=== PATIENT | male | born 1960 | race American Indian/Alaskan Native ===

== ENCOUNTER 2018-03-24 07:22 | Emergency (ER) | payer MEDICARE ==
[2018-03-24 07:22] VITALS: BMI 29.2
[2018-03-24 07:36] VITALS: TEMP 97
[2018-03-24] MEDS ORDERED: Albuterol-Ipratrop 3 mg / 0.5 (3 ml) UD ONE ×3 (07:38→09:38)
[2018-03-24] MEDS ORDERED: Albuterol-Ipratrop 3 mg / 0.5 (3 ml) UD INH STA ×3 (07:42→09:10)
--- NOTE | 2018-03-24 08:20 | ED PDOC ---
HPI: SOB/CHF/COPD Time Seen by Provider: 03/24/18 07:38 Chief Complaint (Nursing): Shortness Of Breath Chief Complaint (Provider): Shortness Of Breath History Per: Patient History/Exam Limitations: no limitations Onset/Duration Of Symptoms: Days (1x) Current Symptoms Are (Timing): Still Present Additional Complaint(s): 57 year old male with a history of asthma, worse with seasonal allergies, presents to the ED with shortness of breath since yesterday. Patient reports he used his inhaler at home with no improvement. He denies chest pain, cough, fever or any other medical complaints. PMD: none provided. Past Medical History Vital Signs: Last Vital Signs Temp 97.0 F L 03/24/18 07:34 Pulse 99 H 03/24/18 07:34 Resp 22 03/24/18 07:59 BP 144/102 H 03/24/18 07:34 Pulse Ox 96 03/24/18 09:56 - Medical History PMH: Arthritis, Asthma, HIV, HTN, Hypercholesterolemia Denies: Chronic Kidney Disease, TIA - Surgical History Surgical History: No Surg Hx - Family History Family History: States: Unknown Family Hx, Hypertension - Immunization History Hx Tetanus Toxoid Vaccination: No Hx Influenza Vaccination: Yes Hx Pneumococcal Vaccination: Yes - Home Medications Home Medications: Ambulatory Orders Medication Instructions Recorded Albuterol HFA [Ventolin HFA 90 0.09 mg IH PRN PRN 05/01/16 mcg/actuation (8 g)] Abacavir/Dolutegravir/Lamivudi 1 tab PO DAILY 05/04/16 [Triumeq Tablet] Aspirin [Aspirin EC] 81 mg PO DAILY 05/04/16 Lisinopril/Hydrochlorothiazide 1 tab PO DAILY 05/04/16 [Zestoretic 20-25 mg Tablet] Albuterol 0.083% [Albuterol 0.083% 3 ml IH Q6H PRN #30 neb 03/24/18 Inhal Josee (2.5 mg/3 ml) UD] Albuterol HFA [Ventolin HFA 90 2 puff IH [id number] PRN #1 bottle 03/24/18 mcg/actuation (8 g)] Nebulizer [Compact Compressor 1 dev XX PRN PRN #1 dev 03/24/18 Nebulizer] Prednisone 50 mg PO DAILY #4 tab 03/24/18 - Allergies Allergies/Adverse Reactions: Allergies Allergy/AdvReac Type Severity Reaction Status Date / Time Penicillins Allergy ANAPHYLAXIS Verified 03/24/18 07:34 seafood Allergy Intermediate ANAPHYLAXIS Uncoded 08/13/17 11:17 Review of Systems ROS Statement: Except As Marked, All Systems Reviewed And Found Negative Constitutional: Negative for: Fever Cardiovascular: Negative for: Chest Pain Respiratory: Positive for: Shortness of Breath. Negative for: Cough Physical Exam - Reviewed Nursing Documentation Reviewed: Yes Vital Signs Reviewed: Yes - Physical Exam Appears: Positive for: Non-toxic, No Acute Distress Skin: Positive for: Normal Color, Warm, Dry Eye Exam: Positive for: EOMI, Normal appearance, PERRL Neck: Positive for: Normal, Painless ROM Cardiovascular/Chest: Positive for: Regular Rate, Rhythm Respiratory: Positive for: Decreased Breath Sounds, Respiratory Distress (mild) Extremity: Positive for: Normal ROM (upper and lower extremities) Neurologic/Psych: Positive for: Alert, Oriented (x3) - Laboratory Results Result Diagrams: 03/24/18 07:30 03/24/18 07:30 - ECG O2 Sat by Pulse Oximetry: 96 (RA) Pulse Ox Interpretation: Normal - Radiology X-Ray: Interpreted by La X-Ray Interpretation: No Acute Disease Medical Decision Making Medical Decision Making: Time: 7:41 Initial Impression: Asthma exacerbation Initial Plan: --EKG --[employer] --CBC with differentials --CXR --Albuterol 3 ml INH --Medrol 125 mg IVP --Peak flow pre/post treatment Pt refused EKG. 09:10 Pt feels much better, minimal wheezing. Scribe Attestation: Documented by Rehana Rosa, acting as a scribe for Anyi Pandya MD Provider Scribe Attestation: All medical record entries made by the Scribe were at my direction and personally dictated by me. I have reviewed the chart and agree that the record accurately reflects my personal performance of the history, physical exam, medical decision making, and the department course for this patient. I have also personally directed, reviewed, and agree with the discharge instructions and disposition Disposition - Clinical Impression Clinical Impression: Asthma exacerbation - Disposition Referrals: [facility] [Outside] Disposition: Routine/Home Condition: IMPROVED Prescriptions: Albuterol HFA [Ventolin HFA 90 mcg/actuation (8 g)] 2 puff IH [id number] PRN #1 bottle PRN Reason: Shortness Of Breath Albuterol 0.083% [Albuterol 0.083% Inhal Josee (2.5 mg/3 ml) UD] 3 ml IH Q6H PRN # 30 neb PRN Reason: Shortness Of Breath Nebulizer [Compact Compressor Nebulizer] 1 dev XX PRN PRN #1 dev PRN Reason: Shortness Of Breath Prednisone 50 mg PO DAILY #4 tab Instructions: Asthma in Adults Forms: [facility] (Col[place]ian)
[2018-03-24 08:22] LABS: ALB/GLOB RATIO 1.2 (1.0-2.1); ALBUMIN 4.2 g/dL (3.5-5.0); CALCIUM 9.2 mg/dL (8.4-10.2)
[2018-03-24 08:23] LABS: BASO # 0.1 K/uL (0.0-0.2); BASO % 1.2 % (0.0-2.0); EOS # 0.3 K/uL (0.0-0.7); EOS % 5.1 % (0.0-4.0); HEMOGLOBIN 15.1 g/dL (12.0-18.0); LYMPH # 1.8 K/uL (1.0-4.3); LYMPH % 34.4 % (20.0-40.0); MEAN CELL VOLUME 89.5 fl (80.0-94.0); MEAN CORPUSCULAR HEMOGLOBIN 30.2 pg (27.0-31.0); MEAN CORPUSCULAR HGB CONC 33.8 g/dL (33.0-37.0); MEAN PLATELET VOLUME 7.4 fl (7.2-11.7); MONO # 0.5 K/uL (0.0-0.8); MONO % 9.3 % (0.0-10.0); NEUT # 2.7 K/uL (1.8-7.0); RBC 5.01 Mil/uL (4.40-5.90); RED CELL DISTRIBUTION WIDTH 14.3 % (11.5-14.5); WHITE BLOOD COUNT 5.3 K/uL (4.8-10.8)
[2018-03-24 10:24] VITALS: BP 152/97; PULSE 88; RESP 18; O2SAT 98
--- NOTE | 2018-03-24 12:38 | RAD ---
HISTORY: SOB COMPARISON: Comparison is made with 03/30/2016 FINDINGS: LUNGS: No active pulmonary disease. PLEURA: No significant pleural effusion identified, no pneumothorax apparent. CARDIOVASCULAR: Normal. OSSEOUS STRUCTURES: No significant abnormalities. VISUALIZED UPPER ABDOMEN: Normal. OTHER FINDINGS: None. IMPRESSION: No active disease.
== END 2018-03-24 10:24 | disposition home or self-care (01) ==
LOC: H.ER 07:22
DX: J45.901 Unspecified asthma with (acute) exacerbation (principal); I10 Essential (primary) hypertension; J44.9 Chronic obstructive pulmonary disease, unspecified; E78.00 Pure hypercholesterolemia, unspecified; Z79.82 Long term (current) use of aspirin; Z88.0 Allergy status to penicillin
CPT/HCPCS: 71045; 80053; 85025; 96374; 99283; J2930